=== PATIENT | female | born 1950 | race Caucasian/White ===

== ENCOUNTER 2016-11-16 23:53 | Emergency (ER) | payer MEDICARE ==
[~2016-11-16] VITALS: Ht 165.1 cm; Wt 122.7 kg
[~2016-11-16 23:53] MED LIST: ACET1TAB42 PO; AMT50T PO; ASPI-628 PO; BISO1TAB39 PO; DOCU100C8 PO; FLUO10CA20 PO; GABA-502 PO; METF10002 PO
[2016-11-16 23:56] VITALS: BP 159/88; PULSE 72; RESP 16; O2SAT 97
--- NOTE | 2016-11-17 00:21 | ED.REPORT ---
HPI-General Illness Date of Service Nov 17, 2016 ED Provider: Dr. Henning 66 year old female who is allergic to penicillin presents to ED with allergic reaction onset this morning. Patient has diffuse red skin rash on her face, chest, and back, but denies vocal changes, difficulty swallowing, or difficulty breathing. She had a tooth pulled last week and subsequently incurred an infection to the site. She was given clindamycin to treat the infection, her last dosage being last night at 1999. She has also been taking Benadryl with no relief. Nursing Notes Stated Complaint: POSS MEDICATION REACTION Chief Complaint: Allergic Reaction Nursing Notes Reviewed: Yes Allergies: Coded Allergies: Penicillins (Verified Allergy, Severe, 11/17/16) propoxyphene (Verified Allergy, Severe, 11/17/16) doxycycline (Verified Allergy, Intermediate, Rash,Itching,, 11/17/16) thimerosal (Verified Allergy, Intermediate, Rash, 11/17/16) Scheduled Amitriptyline (Amitriptyline) 50 Mg Tab 50 MG PO HS Aspirin (Aspir 81) 81 Mg Tablet.dr 81 MG PO DAILY Bisoprolol Fumarate/HCTZ 10-6.25 mg (Ziac 10-6.25 mg) 1 Each Tablet 2 EACH PO DAILY Famotidine (Pepcid) 20 Mg Tablet 20 MG PO BID Fluoxetine (Fluoxetine) 10 Mg Capsule 10 MG PO DAILY Gabapentin (Gabapentin) 300 Mg Capsule 300 MG PO TID take 3 capsules 3 times per day Loratadine (Claritin) 10 Mg Capsule 10 MG PO DAILY Metformin (Metformin) 1,000 Mg Tablet 1,000 MG PO BIDWM Prednisone (PredniSONE) 20 Mg Tablet 60 MG PO DAILY Scheduled PRN Acetaminophen/Codeine 300-30mg (Acetaminophen/Codeine 300-30mg) 1 Each Tablet 1- 2 EACH PO Q4 PRN PRN For Pain Docusate Sodium (Docusate Sodium) 100 Mg Capsule 400 MG PO PRN PRN PRN For Constipation General Time Seen by MD: 00:21 Chief Complaint Allergic reaction Hx Obtained From: Patient Arrived By: Walk-in Sudden in Onset?: No Onset Occurred: 17 - 20 hours ago Symptom Duration: Since onset Recent Healthcare: Recent doctor visit (Tooth Pull.) Similar Sx Previous: No Past Medical History Past Medical History Penicillin Allergy. Arthritis. Reports: Hypertension Past Surgical History Reports: Back/neck surgery (Spinal surgery.) Smoking History Unknown if Ever Smoker Social History Other Social History: Good social support Ambulatory Status Cane Review of Systems No dysphagia. No changes in speech. Full Review of Systems Respiratory: Denies: Shortness of breath Skin: Reports Rash Allergy / Immune: Reports: Allergic reaction Complete sys rev & neg: except as marked. Physical Exam Vital Signs Vital Signs Date Time Temp Pulse Resp B/P Pulse Ox O2 Delivery O2 Flow Rate FiO2 11/17/16 01:06 36.5 69 20 127/72 92 Room Air 11/16/16 23:56 37.0 72 16 159/88 97 Room Air Initial VS: Reviewed General/Constitutional: Well-developed Head / Eyes: Atraumatic ENT: Mucous membranes moist General/Constitutional: Awake, Alert Head / Eyes: Atraumatic, Normocephalic, PERRL, EOMI ENT: Atraumatic, Airway patent, Mucous membranes moist, Pharynx NL Neck: Atraumatic, Full range of motion Respiratory / Chest: Atraumatic, Breath sounds NL, Breath sounds = bilat, No respiratory distress, No rales, No rhonchi, No wheezing Cardiovascular: Heart rate NL, Regular rhythm, Heart sounds NL, No gallop, No murmurs, No rubs Abdomen: Atraumatic, Non-tender, No guarding, No rebound Back: Atraumatic, Full range of motion Upper Extremities Upper Extremity / MS: Atraumatic, Full range of motion Lower Extremity / Pelvis / MS: Atraumatic, Full range of motion Skin: Warm, Dry Color / Condition: Positive: Rash present (Maculopapular rash scattered over front and back of trunk, face and arms. ) Neurologic: Oriented X3, Speech NL, No motor deficits, No sensory deficits Psychiatric: Affect NL, Mood NL Re-Eval/Medical Decision Med Decision/Clinical Course CC-year-old female presents with a maculopapular rash after treatment with clindamycin, to which she apparently is allergic. Be on with prednisone, continue Benadryl at night, Claritin, and Pepcid. No oral symptoms no chest symptoms just skin symptoms at this point. Source of Hx: Old records Time of Eval: 00:21 Patient Status: Condition improved Re-Evaluation/Progress Note: Pt informed of diagnosis and the plan for discharge during the intial interview. The pt understands and agrees with the plan. All questions are addressed at this time. Counseled Regarding: Diagnosis, Need for follow-up, When/why to return to ED Discharge & Departure Primary Impression: Allergic drug reaction Disposition: Home Discharge Condition All VS Reviewed: Yes Condition: Stable Patient Instructions: Atopic Dermatitis (ED) Discontinue clindamycin. Began Claritin daily. Begin Benadryl at night to augment Claritin. Begin prednisone three tablets daily for five days. Begin Pepcid twice daily for five days. Referrals: Lorna Lewis MD (PCP) Thaibe Attestation Portions of this note were transcribed by Mikhail Howard and Madelaine Durham . I, Dr. Henning personally performed the history, physical exam and medical decision -making; I reviewed and confirmed the accuracy of the information in the transcribed note. Signed by:Mikhail Howard and Matthew Serna, 11/17/2016 and 01:31. copies to: Lorna Lewis MD, Christopher W MD Nov 17, 2016 00:21 Mikhail Howard Nov 17, 2016 00:31 MADELAINE DURHAM Nov 17, 2016 01:23
[2016-11-17] MEDS ORDERED: predniSONE 20 mg Tablet PO ONE (00:35)
[2016-11-17] MEDS ORDERED: PRE20 PO (00:36)
[2016-11-17] MEDS ORDERED: FAMO20T PO (00:36)
[2016-11-17] MEDS ORDERED: LORA10CA PO (00:36)
[2016-11-17 01:06] VITALS: BP 127/72; PULSE 69; RESP 20; O2SAT 92
[2016-12-14] MEDS ORDERED: CYAN500 PO (13:28)
[2016-12-14] MEDS ORDERED: BISO1TAB39 PO (13:28)
[2016-12-14] MEDS ORDERED: ORLI60CA2 PO (13:28)
[2016-12-14] MEDS ORDERED: NORT10CA PO (13:28)
[2016-12-14] MEDS ORDERED: KEN25CR EXT (13:28)
== END 2016-11-17 01:08 | disposition home or self-care (01) ==
LOC: SED 23:53
DX: T36.8X5A Adverse effect of other systemic antibiotics, initial encounter (principal); R21 Rash and other nonspecific skin eruption; Y93.89 Activity, other specified; Y92.9 Unspecified place or not applicable; Y99.8 Other external cause status; I10 Essential (primary) hypertension; Z88.0 Allergy status to penicillin; Z88.8 Allergy status to other drugs, medicaments and biological substances; Z88.1 Allergy status to other antibiotic agents; Z79.82 Long term (current) use of aspirin; Z79.84 Long term (current) use of oral hypoglycemic drugs

== ENCOUNTER 2016-12-29 07:38 | Day surgery (SDC) | payer MEDICARE ==
[2016-12-15 10:04] VITALS: BP 137/78; PULSE 63; RESP 14; O2SAT 96
[~2016-12-29] VITALS: Ht 162.6 cm; Wt 121.1 kg
[~2016-12-29 07:38] MED LIST changes: -AMT50T PO; +CYAN500 PO; -GABA-502 PO; +KEN25CR EXT; +NORT10CA PO; +ORLI60CA2 PO; +PRE20 PO
[2016-12-29] MEDS ORDERED: MethylprednisoLONE Depot 80 mg/mL Inj ONE (07:39)
[2016-12-29] MEDS ORDERED: Bupivacaine-MPF 0.25% 30 mL Inj ONE (07:39)
[2016-12-29] MEDS ORDERED: METF-496 PO (08:05)
[2016-12-29] MEDS ORDERED: ASPI-973 PO (08:05)
[2016-12-29 08:07] VITALS: BP 145/77; PULSE 66; RESP 14; O2SAT 98
--- NOTE | 2016-12-29 14:53 | PCM.PROC ---
Procedure Note Date of Service: Dec 29, 2016 Pre Procedure Diagnosis: PROCEDURE: Ultrasound guided injection of the RIGHT shoulder PRE-PROCEDURE DIAGNOSIS: Shoulder arthropathy, rotator cuff syndrome POST-PROCEDURE DIAGNOSIS: same INDICATION: 66-year-old female with RIGHT shoulder arthropathy PERFORMED BY: Salazar Cuba MD DESCRIPTION OF PROCEDURE: Patient was met in the holding area. Consent was signed, site was confirmed and all questions were answered. Patient was taken to the procedure suite and placed sitting on the procedure table. Ipsilateral arm was folded across the chest to maximally expose ultrasound view of the glenohumeral joint. Posterior aspect of shoulder was anesthetized with 1 % lidocaine in the skin and subcutaneous tissues. Area was prepped and draped in sterile fashion and a 3-1/2 inch 22-gauge Quincke spinal needle was advanced under direct ultrasound visualization into the glenohumeral joint. 80 mg Depo-Medrol mixed with 2 cc of 0.25% bupivacaine was injected without incident. POST-PROCEDURE DISPOSITION: Patient was returned to the holding area in stable condition. They were discharged home when all discharge criteria were met. Evaluation/Physical Exam before discharge revealed: DISCHARGE MEDICATIONS: FOLLOW UP: Resume home physical therapy Return to clinic in 8-12 weeks. Salazar Unger MD, MD Dec 29, 2016 14:53
== END 2016-12-29 23:59 | disposition home or self-care (01) ==
LOC: END 07:38
PROVIDERS: ATTEND Anesthesiology Pain Medicine
DX: M25.511 Pain in right shoulder (principal); G89.29 Other chronic pain; I10 Essential (primary) hypertension
CPT/HCPCS: 20610; J1040

== ENCOUNTER 2017-05-16 14:04 | Emergency (ER) | payer MEDICARE ==
[~2017-05-16] VITALS: Ht 162.6 cm; Wt 124.1 kg
[~2017-05-16 14:04] MED LIST changes: -ASPI-628 PO; +ASPI-973 PO; -DOCU100C8 PO; +METF-496 PO; -METF10002 PO; -PRE20 PO
[2017-05-16 14:22] VITALS: BP 150/90; PULSE 56; RESP 18; O2SAT 99
--- NOTE | 2017-05-16 15:40 | ED.REPORT ---
HPI-General Illness Date of Service May 16, 2017 ED Provider: Merle Barker MD Patient is a 66 year old female with a history of hypertension and lymphedema who presents to the ED complaining of left leg weakness over the past two months. Associated symptoms include left leg swelling. She also complains of numbness in the left arm and left fingers. Patient denies fever. In the last two months, she reports that she has fallen about 5 times without injury. The patient states that she has seen her primary care physician for this problem and has a neurologist appointment in two weeks. Nursing Notes Stated Complaint: LEFT SIDE NUMB,SWOLLEN FOOT,WEAK LEG (LYMPHEDEMA) Chief Complaint: Neuro Symptoms/ Deficits Nursing Notes Reviewed: Yes Allergies: Coded Allergies: Penicillins (Verified Allergy, Severe, Rash, 12/29/16) propoxyphene (Verified Allergy, Severe, Nausea,Vomiting, 12/29/16) doxycycline (Verified Allergy, Intermediate, Rash,Itching,, 12/29/16) thimerosal (Verified Allergy, Intermediate, Rash, 12/29/16) Scheduled Aspirin (Aspirin) 81 Mg Tablet 81 MG PO DAILY Bisoprolol Fumarate/HCTZ 10-6.25 mg (Ziac 10-6.25 mg) 1 Each Tablet 2 EACH PO DAILY Cyanocobalamin (Vitamin B12) 500 Mcg Tablet 1,000 MCG PO DAILY Fluoxetine (Fluoxetine) 10 Mg Capsule 10 MG PO DAILY Metformin ER (Metformin ER) 1,000 Mg Tablet 1,000 MG PO BIDWM Nortriptyline (Nortriptyline) 10 Mg Capsule 10 MG PO HS Triamcinolone Acet (Triamcinolone Acetonide Cream) 1 Applic/0.25 Gm Cr 1 APPLIC EXT BID Scheduled PRN Acetaminophen/Codeine 300-30mg (Acetaminophen/Codeine 300-30mg) 1 Each Tablet 1- 2 EACH PO Q4 PRN PRN For Pain Miscellaneous Medications Orlistat (Clovis) 60 Mg Capsule 60 MG PO General Time Seen by MD: 15:34 Chief Complaint Other (left leg weakness) Hx Obtained From: Patient Arrived By: Walk-in Sudden in Onset?: No Onset Occurred: More than a week ago... (2 months) Symptom Duration: Since onset Severity: Current: No pain currently Recent Healthcare: Recent doctor visit Similar Sx Previous: Yes Past Medical History Past Medical History Arthritis Reports: Hypertension Past Surgical History spinal fusion Smoking History Unknown if Ever Smoker Ambulatory Status Cane Review of Systems Full Review of Systems Constitutional: Denies: Chills, Fever Skin: Denies Itching, Denies Rash Neurologic: Reports: Numbness (left arm and fingers), Problem walking, Weakness (in the left leg) Complete sys rev & neg: except as marked. Physical Exam Vital Signs Vital Signs Date Time Temp Pulse Resp B/P Pulse Ox O2 Delivery O2 Flow Rate FiO2 05/16/17 20:49 59 16 188/73 96 Room Air 05/16/17 14:22 36.6 56 18 150/90 99 Room Air Initial VS: Reviewed General/Constitutional: Awake, Alert, No acute distress Head / Eyes: Atraumatic, Normocephalic, PERRL, EOMI Respiratory / Chest: Atraumatic, Breath sounds NL, Breath sounds = bilat, No respiratory distress Cardiovascular: Heart rate NL, Regular rhythm, Heart sounds NL Skin: Atraumatic, Color NL, No rash, Warm, Dry Neurologic: Oriented X3, Speech NL Focal Weakness: Positive: Pronator drift L decreased sensation on tne left side of the face 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 4/5 flexion and extension of left upper extremity 3/5 left lower extremity subjective no sensation of left upper extremity decreased sensation of the left lower extremity visual field intact dysmetria on the left no dysarthria Interpretation & Diagnostics Lab Results Interpretation Result Diagram: 05/16/17192405/16/171924 Test 05/16/17 17:36 05/16/17 19:25 Urine Color Yellow (YELLOW) Urine Appearance Clear (CLEAR,HAZY) Urine pH 5.5 (5.0-8.0) Urine Specific [place] 1.020 (1.003-1.035) Urine Protein Negativemg/dL (NEG,TRACE) Urine Glucose (UA) Negativemg/dL (NEGATIVE) Urine Ketones Negativemg/dL (NEGATIVE) Urine Occult Blood Negative (NEGATIVE) Urine Nitrite Negative (NEGATIVE) Urine Bilirubin Negative (NEGATIVE) Urine Urobilinogen Normalmg/dL (NORMAL) Urine Leukocyte Esterase Negative (NEGATIVE) Urine RBC 0-2/hpf (0-2) Urine WBC 0-5/hpf (0-5) Urine Epithelial Cells Few/hpf (NONE-MOD) Urine Crystals None seen (NONE SEEN) Urine Bacteria Moderate/hpf (NONE-FEW) Urine Hyaline Casts None/lpf (NONE) Urine Granular Casts None seen (NONE SEEN) Urine Waxy Casts None seen (NONE SEEN) Urine Red Blood Cell Casts None seen (NONE SEEN) Urine White Blood Cell Casts None seen (NONE SEEN) Urine Mucus None seen (None Seen) Urine Trichomonas None seen (NONE SEEN) Urine Yeast None (NONE SEEN) Urinalysis Comment None Urine Culture Reflexed Indicated White Blood Count 4.8th/mm3 (3.8-10.1) Red Blood Count 4.49mil/mm3 (3.90-5.20) Hemoglobin 11.2g/dL (12.0-15.6) Hematocrit 36.0% (35.0-46.0) Mean Corpuscular Volume 80.2fL (81-100) Mean Corpuscular Hemoglobin 24.9pg (27.0-35.0) Mean Corpuscular Hemoglobin Concent 31.1% (32.0-37.0) Red Cell Distribution Width 21.7% (12.3-15.4) Platelet Count 306bil/L (150-400) Neutrophils (%) (Auto) 58.1% (40-74) Lymphocytes (%) (Auto) 26.0% (14-46) Monocytes (%) (Auto) 11.4% (4-12) Eosinophils (%) (Auto) 3.5% (0-5) Basophils (%) (Auto) 1.0% (0-3) Prothrombin Time 10.7sec (8.1-12.5) Prothromb Time International Ratio 1.00ratio Activated Partial Thromboplast Time 25.0sec (22.8-33.0) Sodium Level 142mEq/L (134-144) Potassium Level 3.7mEq/L (3.5-5.2) Chloride Level 102mEq/L (97-108) Carbon Dioxide Level 25mmol/L (18-29) Blood Urea Nitrogen 17mg/dL (8-27) Creatinine 0.63mg/dL (0.57-1.00) Estimat Glomerular Filtration Rate 135mL/min (>59) Glucose Level 101mg/dL (60-99) Calcium Level 9.6mg/dL (8.5-10.1) Total Bilirubin 0.2mg/dL (0.0-1.2) Aspartate Amino Transf (AST/SGOT) 28U/L (0-50) Alanine Aminotransferase (ALT/SGPT) 26U/L (0-32) Alkaline Phosphatase 56U/L (25-165) Troponin T < 0.010ug/L (0.0-0.011) Total Protein 7.8g/dL (6.4-8.4) Albumin 4.4g/dL (3.4-5.0) Hold Manley Top Tube Received (Received) ECG Interpretation ECG Interpretation: sinus rhythm vs atrial fibrillation, limited by artifact and low voltage P waves Time: :17 Interpreted by: ED physician Normal ECG Interpretation: Normal rate (55) CT Head Interpretation IMPRESSION: 1. 4.9 x 4.4 x 3 x 1 cm mass with large cystic/necrotic component involving the right cerebral hemisphere highly suspicious for primary brain neoplasm. 2. 7 mm of [id number] midline shift. 3. Findings telephoned to Merle Barker on 05/16/17 at 1733 hrs. Dictated by: Marina Hernandez MD, PhD on 05/16/2017 at 17:31 Approved by: Marina Hernandez MD, PhD on 05/16/2017 at 17:35 Interpretation / Wet Read by: Interpret - Radiologist Re-Eval/Medical Decision Med Decision/Clinical Course 66 year Old female presents to the emergency department with ongoing symptoms or worsening of weakness and numbness of her left side. Head CT performed with large intracranial neoplasm with some midline shift and edema. Discussed with neurosurgery refrigeration tech at [facility], reccomends dexamethasone but no additional medications, no antiepileptics at this time. transfer arranged to [facility] by ambulance. Time of Eval: 19:07 Re-Evaluation/Progress Note: Discussed CT results and plan to transfer. Patient understands and agrees to plan. All questions were addressed. Consultation #1: Consulted With: Neurosurgery Call Returned at: 19:45 Hogshead Weigher: Will see patient, Agrees with eval, Agrees with plan Note: Consult with Dr. Adler, neurosurgeon at [facility], who recommends the patient start Dexamethasone 6mg q 6 hours before transfer Consultation #2: Consulted With: Hospitalist Call Returned at: 20:15 Hogshead Weigher: Agrees with eval, Agrees with plan, Accepts admit Note: Consult with Dr. Nair from [place], who accepts the patient. Counseled Regarding: Diagnosis, Lab results, Need for transfer Discharge & Departure Primary Impression: Neoplasm of brain Disposition: Transfer, Acute Care Facility Discharge Condition All VS Reviewed: Yes Condition: Stable Referrals: Marbella Washington (PCP) Matthew Attestation Portions of this note were transcribed by Annamaria Gresham. I, Dr. Barker personally performed the history, physical exam and medical decision-making; I reviewed and confirmed the accuracy of the information in the transcribed note. Signed by: Matthew Pop, 05/16/17 copies to: Marbella Washington Sarah C MD May 16, 2017 15:40 Johnna Gresham May 16, 2017 15:49
--- NOTE | 2017-05-16 17:36 | DRSVH ---
PROCEDURE: CT BRAIN WITHOUT CONTRAST ([id number]) INDICATIONS: Stroke TECHNIQUE: Noncontrast 4.5 mm thick angled axial sections acquired from the foramen magnum to the vertex, with c oronal reformats. COMPARISON: None. FINDINGS: Image quality: Excellent. CSF spaces: Basal cisterns are patent. No extra-axial fluid collections. The ventricles are symmet sherman in size and shape. Brain: There is a 4.9 x 4.4 x 3.1 cm mass with both solid and cystic components involving the right frontal lobe, right parietal lobe in the right deep bentley matter. Extensive vasogenic edema is associ ated with the right cerebral hemisphere mass. There is approximately 7 mm of xytiw-[id number] subfalcin e herniation associated with the mass. There is cerebral volume loss for age, with resultant ventric ular and sulcal prominence. There are periventricular and deep white matter chronic small vessel isc hemic changes. There is intracranial internal carotid artery atherosclerosis. Skull and face: Calvarium and visualized facial bones appear intact, without suspicious lesions. Sinuses: Visualized sinuses and mastoids are clear. IMPRESSION: 1. 4.9 x 4.4 x 3 x 1 cm mass with large cystic/necrotic component involving the right cerebral hemis phere highly suspicious for primary brain neoplasm. 2. 7 mm of [id number] midline shift. 3. Findings telephoned to Merle Barekr on 05/16/17 at 1733 hrs. Dictated by: Marina Hernandez MD, PhD on 05/16/2017 at 17:31 Approved by: Marina Hernandez MD, PhD on 05/16/2017 at 17:35
[2017-05-16 17:51] LABS: APPEARANCE,URINE CLEAR (CLEAR,HAZY); COLOR,URINE YELLOW (YELLOW); OCCULT BLOOD,URINE NEGATIVE (NEGATIVE); PH,URINE 5.5 (5.0-8.0); UROBILINOGEN,URINE NORMAL (NORMAL)
[2017-05-16 19:38] LABS: EOSINOPHILS % (AUTO) 3.5 % (0-5)
[2017-05-16 19:43] LABS: MONOCYTES % (AUTO) 11.4 % (4-12); Mean Corpuscular Hemoglobin 24.9 pg (27.0-35.0); Mean Corpuscular Volume 80.2 fL (81-100); NEUTROPHILS % (AUTO) 58.1 % (40-74); Platelet Count 306 bil/L (150-400)
[2017-05-16] MEDS ORDERED: Dexamethasone 4 mg/mL Inj IV ONE (19:50)
[2017-05-16 20:11] LABS: TROPONIN T < 0.010 ug/L (0.0-0.011)
[2017-05-16] MEDS ORDERED: Dexamethasone Inj 6 MG in 0.9% Sodium Chloride-Pha MIX 50 ML IV ONE (20:30)
[2017-05-16 20:49] VITALS: BP 188/73; PULSE 59; RESP 16; O2SAT 96
== END 2017-05-16 21:19 | disposition short-term general hospital (02) ==
LOC: SED 14:04
DX: C71.9 Malignant neoplasm of brain, unspecified (principal); I10 Essential (primary) hypertension; Z79.82 Long term (current) use of aspirin; Z79.84 Long term (current) use of oral hypoglycemic drugs; Z88.0 Allergy status to penicillin; Z88.1 Allergy status to other antibiotic agents; Z88.8 Allergy status to other drugs, medicaments and biological substances
CPT/HCPCS: 36415; 70450; 80053; 81000; 84484; 85025; 85610; 85730; 87086; 87088; 93005; 96374; 99285; J1100